=== PATIENT | female | born 2005 | race African-American/Black ===

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

== ENCOUNTER 2025-01-20 12:41 | Emergency (ER) | payer OTHER ==
--- OUTSIDE RECORDS SUMMARY | 2025-01-20 12:49 | XMS REPORT | Continuity of Care Document ---
Author Name Unknown Address [address] [facility] [address] [place] [address] [facility] [address] [facility] [address] [place] [address] Care Team Providers Care Media Relations Director Name Role Phone LAURIE GARCIA Primary Care Physician CAROL Schwab Attending Clinician CAROL Toure Attending Clinician JOSÉ Alegria Attending Clinician Unavailable JOSÉ MILLER Attending Clinician Unavailable Carol Dill MD Attending Clinician + [phone] CHANDA CAMP Attending Clinician Unavailab CHANDA Durant Attending Clinician UnavailLaurie Khan MD Attending Clinician + [phone] Po, [facility] Main Attending Clinician UnavailLAURIE Saleem Attending Clinician Unavailjani peace Doctor Unassigned, [place] Attending Clinician U Ahsan Cosme PA-C Attending Clinician [phone] DAIJA GILMAN Attending Clinician Unavailable Daija Gilman MD Attending Clinician [phone] ORLIN SENDSHANNON K.HKaron Attending Clinician Unavailjani Ordaz MD, Robby K.H. Attending Clinician + [phone] Mary Engel Attending Clinician [phone] MARY ESPARZA Attending Clinician Unavailable Nurse, Jordan Quintanilla Attending Clinician Unavaila AHSAN Camarillo Attending Clinician Unavailable Kita Walker MD Attending Clinician [phone] KITA WALKER Attending Clinician Unavailable LE QUEZADA Attending Clinician Unavailable TATE GILMAN Attending Clinician Unavailable SUZAN GOODWIN Attending Clinician Unavailab KELSY Dee Attending Clinician Unavailable SARIKA MIRANDA Attending Clinician Unavaila CHANDA Gutierrez Admitting Clinician Unavailab le Payers Payer Name Policy Type Policy Number Effective Date Expirati on Date Source [facility] [id number] 2020 00:00:00 [facility] [id number] 2020 00:00:00 [facility] [id number] 00:00:00 Problems Condition Name Condition Details Condition Category Status Onset Date Resolution Date Last Treatment Date Treating Clinician Comments Source Chlamydial infection Chlamydial Infection Problem Active 8-13 00:00: 00 [facility] Disorder of menstruati on Disorder of Menstruati on Problem Active - 00:00: 00 [facility] Foul smelling urine Foul Smelling Urine Problem Active 6 00:00: 00 [facility] Seizure-li ke activity Seizure-li ke activity Disease Active 12-05 00:00: 00 Last Assessmen t & Plan: Formattin g of this note might be different from the original. 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 No focal changes with her neurologi carole exam today. Plan:Retu rn to see Dr. Walker - saw her in the past for migraines - should likely have an EEG as well. Referral placed already.S eizure precautio ns provided. No driving or swimming alone pending the evaluatio n.Avoid prolonged exposure to high heat environme nts.Keep well hydrated - 3 -4 water bottles per day.Blood work ordered - CBC, CMP, TSH and Vitamin D level.Not jasmyne if further seizure like activity occurs - gave ER precautio ns. [facility] Orthostati c dizziness Orthostati c dizziness Disease Active 12-05 00:00: 00 Last Assessmen t & Plan: Formattin g of this note might be different from the original. Recommend ed a return to cardiolog y - she is establish ed. A referral is active for her to establish with an adult cardiolog ist - it support analyst to assist with securing the appointme nt.Plan:S tressed importanc e of hydration .Keep some salt in the diet daily. [facility] History of anemia History of anemia Disease Active 7 00:00: 00 Last Assessmen t & Plan: Formattin g of this note might be different from the original. Plan:Revi ewed iron rich foods and ordered follow up blood work. [facility] Migraines Migraines Disease Active 01-08 00:00: 00 Last Assessmen t & Plan: Formattin g of this note might be different from the original. Nicole is having ongoing issues with migraine headaches and has been non compliant (due to nausea) with the recommend ed medicatio ns.Plan:F irst line treatment for headaches are rest, seek out a quiet/ivon k place and avoid media.Ibu profen or acetamino phen may be given for temporary relief. Dosing and potential side effects discussed .Headache s can have many contribut ing factors.N utrition is important : Eating regular meals, healthy snacks.Dr bellamy plenty of fluids - water is best.Avoi d caffeine intake.Sl eep is important : Target 8 - 10 hours of sleep nightly.P ad activitie s to relieve stress.Re commended return to neurology for advice - referral already placed. [facility] Chest pain, atypical Chest pain, atypical Disease Active 5- 00:00: 00 Overview: Formattin g of this note might be different from the original. Saw Cardiolog y on 10/25/2020 and full eval was done which revealed no cardiac cause for her chest pain, no signs of pericardi tis, and they suspected costochon dritis.Up dated follow up with cardiolog y done 01/24/2022 : PLAN as follows.A typical chest pain:EKG dated 01/08/2022 reviewed shows sinus tachycard ia, narrow QRS complex, no significa nt ST changes.C T chest dated 10/21/2020 reviewed shows no evidence of PE. No coronary calcifica tion noted. No pericardi al effusion noted at that time.EKG dated 10/25/2020 reviewed shows sinus rhythm, narrow QRS complex, no significa nt changes.E chocardio gram dated 10/25/2020 reviewed shows preserved LV systolic function, normal atrial size, no significa nt valve abnormali ties noted.Rec ommended exercise TMT for further assessmen t for underlyin g arrhythmi as/functi onal capacity/ ischemic changes.P rocedure explained . Instructi ons given.Rec ommended adequate free water hydration .In spite of negative TMT, if she continues to have underlyin g atypical chest pain, but will proceed with cardiac CTA for further assessmen t.Last Assessmen t & Plan: Formattin g of this note might be different from the original. Teenager with new onset chest pain for period of 2 weeks, occurring daily. History of COVID-19 infection 1 month ago. Pain increases with ambulatio n. She is normotens elizabeth. Different ial includes potential cardiac problem, gastroeso phageal reflux, costochon dritis, pulmonary /chest wall pain. Clinical exam is inconsist ent with gastroeso phageal reflux or costochon dritis. Her respirato ry symptoms with COVID-19 were mild and not persistin g at this time. Lung exam is normal. No cardiopul monary insuffici ency on exam.Plan :Recommen ded cardiolog y evaluatio n, referral placed.Pr ovided a note for excuse from work pending the evaluatio n.Distant history of anemia, low hemoglobi n -noncompl iance with iron supplemen tation, CBC ordered.N otify if the pain worsens or becomes associate d with other symptoms. [facility] Scoliosis of thoracic spine Scoliosis of thoracic spine Disease Resolve d 02-05 00:00: 00 2022-12-05 00:00:00 2022-12-05 12:38:14 [facility] Iron deficiency anemia secondary to inadequate dietary iron intake Iron deficiency anemia secondary to inadequate dietary iron intake Disease Resolve d 01-21 00:00: 00 2022-12-05 00:00:00 2022-12-05 12:38:08 Overview: Formattin g of this note might be different from the original. On iron starting 01/21/2019 [facility] Chronic migraine without aura without status migrainosu s, not intractabl e Chronic migraine without aura without status migrainosu s, not intractabl e Disease Resolve d 2020-0 5-20 00:00: 00 2021-11-22 00:00:00 2021-11-22 16:20:00 [facility] Boil Boil Disease Resolve d 816 00:00: 00 2020-05-05 00:00:00 2020-05-05 16:04:23 [facility] Encounter for routine child health examinatio n without abnormal findings Encounter for routine child health examinatio n without abnormal findings Disease Resolve d 16 00:00: 00 2019-01-16 00:00:00 2019-01-16 12:23:14 [facility] Allergies, Adverse Reactions, Alerts Allergy Name Allergy Type Status Severity Reaction(s) Onset Date Inactive Date Treating Clinician Comments Source NO KNOWN ALLERGIE S Drug Class Active [facility] Social History Social Habit Start Date Stop Date Quantity Comments Source Gender identity [facility] Sexual orientation U [facility] History of Social function 2024-01-14 00:00:00 2024-01-14 00:00:00 [facility] Alcoholic beverage intake 2024-01-14 00:00:00 2024-01-14 00:00:00 Current drinker of alcohol (finding) [facility] Alcohol intake 2023-07-04 00:00:00 2023-07-04 00:00:00 Current drinker of alcohol (finding) [facility] Tobacco use and exposure 2022-12-10 00:00:00 2022-12-10 00:00:00 Smokeless tobacco non-user [facility] Alcohol Comment 2022-12-10 00:00:00 2022-12-10 00:00:00 ocassional [facility] Exposure to SARS-CoV-2 (event) 2022-10-08 00:00:00 2022-10-18 10:10:00 Not sure [facility] Sex assigned at 2003 00:00:00 2005 00:00:00 [facility] Smoking Status Start Date Stop Date Source Never Smoker [facility] Medications Ordered Medication Name Filled Medication Name Start Date Stop Date Current Medication? Ordering Clinician Indication Dosage Frequency Signature (SIG) Comments Components Source darrick destinyrobson ioL-iron (LOESTRIN FE 06/22) 1 mg-20 mcg (21)/75 mg (7) tablet 8-13 00:00: 00 Yes [id number] 1{tbl} Take 1 tablet by mouth in the morning. [facility] HYDROcodone -acetaminop hen (NORCO 5) 5-325 mg tablet 1 tablet - 14:45: 00 07-04 14:42 :00 No 1{tbl} 1 tablet, Oral, ONCE, 1 dose, On Sat07/04/23 at 0845, DOROTHY [facility] LOESTRIN FE (BLISOVI FE 06/22, ,) 1 mg-20 mcg (21)/75 mg (7) tablet - 00:00: 00 12-10 04:59 :00 No [id number] 1{tbl} Take 1 tablet by mouth in the morning. [facility] BLISOVI FE 06/22, 28, 1 mg-20 mcg (21)/75 mg (7) tablet -09 00:00: 00 12-10 00:00 :00 No [id number] TAKE 1 TABLET BY MOUTH EVERY DAY [facility] doxycycline hyclate 100 mg capsule 5-18 00:00: 00 12-05 00:00 :00 No [id number] 100mg Take 1 capsule by mouth in the morning and 1 capsule in the evening. [facility] topiramate 25 mg tablet 4-03 00:00: 00 Yes [id number] 9105 25mg Take 1 tablet by mouth in the morning. [facility] LOESTRIN FE 1 mg-20 mcg (21)/75 mg (7) tablet 5-18 00:00: 00 11-09 00:00 :00 No [id number] 1{tbl} Take 1 tablet by mouth daily. [facility] TOPIRAMATE 25 mg tablet 2020-06-12 00:00: 00 09-03 00:00 :00 No [id number] 9105 TAKE 1 TABLET BY MOUTH EVERY DAY [facility] rizatriptan 10 mg tablet 15 00:00: 00 Yes [id number] 9105 10mg Take 1 tablet by mouth as needed for Migraine. May take a 2nd dose after 2 hours if needed. Max 2 doses/day, 4 doses/week . [facility] Blisovi Fe 06/22 (28) 1 mg-20 mcg (21)/75 mg (7) tablet TAKE 1 TABLET BY MOUTH EVERY DAY IN THE MORNING Blisovi Fe 06/22 (28) 1 mg-20 mcg (21)/75 mg (7) tablet TAKE 1 TABLET BY MOUTH EVERY DAY IN THE MORNING No Blisovi Fe 06/22 (28) 1 mg-20 mcg (21)/75 mg (7) tablet TAKE 1 TABLET BY MOUTH EVERY DAY IN THE MORNING [facility] Immunizations Ordered Immunization Name Filled Immunization Name Date Status Comments Source HPV9 2021-11-22 00:00:00 Completed [facility] HPV9 2021-11-22 00:00:00 Completed [facility] HPV9 2021-11-22 00:00:00 Completed [facility] HPV9 2021-11-22 00:00:00 Completed [facility] HPV9 2021-11-22 00:00:00 Completed [facility] HPV9 2021-11-22 00:00:00 Completed [facility] HPV9 2021-11-22 00:00:00 Completed [facility] HPV9 2021-11-22 00:00:00 Completed [facility] HPV9 2021-11-22 00:00:00 Completed [facility] HPV9 2021-11-22 00:00:00 Completed [facility] HPV9 2021-11-22 00:00:00 Completed [facility] HPV9 2021-11-22 00:00:00 Completed [facility] Meningococcal B, OMV 2021-11-16 00:00:00 Completed [facility] Meningococcal B, OMV 2021-11-16 00:00:00 Completed [facility] Meningococcal B, OMV 2021-11-16 00:00:00 Completed [facility] Meningococcal B, OMV 2021-11-16 00:00:00 Completed [facility] Meningococcal B, OMV 2021-11-16 00:00:00 Completed [facility] Meningococcal B, OMV 2021-11-16 00:00:00 Completed [facility] Meningococcal B, OMV 2021-11-16 00:00:00 Completed [facility] Meningococcal B, OMV 2021-11-16 00:00:00 Completed [facility] Meningococcal B, OMV 2021-11-16 00:00:00 Completed [facility] Meningococcal B, OMV 2021-11-16 00:00:00 Completed [facility] Meningococcal B, OMV 2021-11-16 00:00:00 Completed [facility] Meningococcal B, OMV 2021-11-16 00:00:00 Completed [facility] HPV9 2020-07-07 00:00:00 Completed [facility] HPV9 2020-07-07 00:00:00 Completed [facility] HPV9 2020-07-07 00:00:00 Completed [facility] HPV9 2020-07-07 00:00:00 Completed [facility] HPV9 2020-07-07 00:00:00 Completed [facility] HPV9 2020-07-07 00:00:00 Completed [facility] HPV9 2020-07-07 00:00:00 Completed [facility] HPV9 2020-07-07 00:00:00 Completed [facility] HPV9 2020-07-07 00:00:00 Completed [facility] HPV9 2020-07-07 00:00:00 Completed [facility] HPV9 2020-07-07 00:00:00 Completed [facility] HPV9 2020-07-07 00:00:00 Completed [facility] Meningococcal Polysaccharide (groups A, C, Y and W-135) conjugate vaccine (MCV4P) 2020-05-06 00:00:00 Completed [facility] Meningococcal B, Recombinant 2020-05-06 00:00:00 Completed [facility] HPV9 2020-05-06 00:00:00 Completed [facility] Meningococcal Polysaccharide (groups A, C, Y and W-135) conjugate vaccine (MCV4P) 2020-05-06 00:00:00 Completed [facility] Meningococcal B, Recombinant 2020-05-06 00:00:00 Completed [facility] HPV9 2020-05-06 00:00:00 Completed [facility] Meningococcal Polysaccharide (groups A, C, Y and W-135) conjugate vaccine (MCV4P) 2020-05-06 00:00:00 Completed [facility] Meningococcal B, Recombinant 2020-05-06 00:00:00 Completed [facility] HPV9 2020-05-06 00:00:00 Completed [facility] Meningococcal Polysaccharide (groups A, C, Y and W-135) conjugate vaccine (MCV4P) 2020-05-06 00:00:00 Completed [facility] Meningococcal B, Recombinant 2020-05-06 00:00:00 Completed [facility] HPV9 2020-05-06 00:00:00 Completed [facility] Meningococcal Polysaccharide (groups A, C, Y and W-135) conjugate vaccine (MCV4P) 2020-05-06 00:00:00 Completed [facility] Meningococcal B, Recombinant 2020-05-06 00:00:00 Completed [facility] HPV9 2020-05-06 00:00:00 Completed [facility] Meningococcal Polysaccharide (groups A, C, Y and W-135) conjugate vaccine (MCV4P) 2020-05-06 00:00:00 Completed [facility] Meningococcal B, Recombinant 2020-05-06 00:00:00 Completed [facility] HPV9 2020-05-06 00:00:00 Completed [facility] Meningococcal Polysaccharide (groups A, C, Y and W-135) conjugate vaccine (MCV4P) 2020-05-06 00:00:00 Completed [facility] Meningococcal B, Recombinant 2020-05-06 00:00:00 Completed [facility] HPV9 2020-05-06 00:00:00 Completed [facility] Meningococcal Polysaccharide (groups A, C, Y and W-135) conjugate vaccine (MCV4P) 2020-05-06 00:00:00 Completed [facility] Meningococcal B, Recombinant 2020-05-06 00:00:00 Completed [facility] HPV9 2020-05-06 00:00:00 Completed [facility] Meningococcal Polysaccharide (groups A, C, Y and W-135) conjugate vaccine (MCV4P) 2020-05-06 00:00:00 Completed [facility] Meningococcal B, Recombinant 2020-05-06 00:00:00 Completed [facility] HPV9 2020-05-06 00:00:00 Completed [facility] Meningococcal Polysaccharide (groups A, C, Y and W-135) conjugate vaccine (MCV4P) 2020-05-06 00:00:00 Completed [facility] Meningococcal B, Recombinant 2020-05-06 00:00:00 Completed [facility] HPV9 2020-05-06 00:00:00 Completed [facility] Meningococcal Polysaccharide (groups A, C, Y and W-135) conjugate vaccine (MCV4P) 2020-05-06 00:00:00 Completed [facility] Meningococcal B, Recombinant 2020-05-06 00:00:00 Completed [facility] HPV9 2020-05-06 00:00:00 Completed [facility] Meningococcal Polysaccharide (groups A, C, Y and W-135) conjugate vaccine (MCV4P) 2020-05-06 00:00:00 Completed [facility] Meningococcal B, Recombinant 2020-05-06 00:00:00 Completed [facility] HPV9 2020-05-06 00:00:00 Completed [facility] Meningococcal Polysaccharide (groups A, C, Y and W-135) conjugate vaccine (MCV4P) 2016-01-11 00:00:00 Completed [facility] TDAP 2016-01-11 00:00:00 Completed [facility] Meningococcal Polysaccharide (groups A, C, Y and W-135) conjugate vaccine (MCV4P) 2016-01-11 00:00:00 Completed [facility] TDAP 2016-01-11 00:00:00 Completed [facility] Meningococcal Polysaccharide (groups A, C, Y and W-135) conjugate vaccine (MCV4P) 2016-01-11 00:00:00 Completed [facility] TDAP 2016-01-11 00:00:00 Completed [facility] Meningococcal Polysaccharide (groups A, C, Y and W-135) conjugate vaccine (MCV4P) 2016-01-11 00:00:00 Completed [facility] TDAP 2016-01-11 00:00:00 Completed [facility] Meningococcal Polysaccharide (groups A, C, Y and W-135) conjugate vaccine (MCV4P) 2016-01-11 00:00:00 Completed [facility] TDAP 2016-01-11 00:00:00 Completed [facility] Meningococcal Polysaccharide (groups A, C, Y and W-135) conjugate vaccine (MCV4P) 2016-01-11 [facility] [facility] Meningococcal Polysaccharide (groups A, C, Y and W-135) conjugate vaccine (MCV4P) 2016-01-11 00:00:00 Completed [facility] TDAP 2016-01-11 00:00:00 Completed [facility] Meningococcal Polysaccharide (groups A, C, Y and W-135) conjugate vaccine (MCV4P) 2016-01-11 00:00:00 Completed [facility] TDAP 2016-01-11 00:00:00 Completed [facility] Meningococcal Polysaccharide (groups A, C, Y and W-135) conjugate vaccine (MCV4P) 2016-01-11 00:00:00 Completed [facility] TDAP 2016-01-11 00:00:00 Completed [facility] Meningococcal Polysaccharide (groups A, C, Y and W-135) conjugate vaccine (MCV4P) 2016-01-11 00:00:00 Completed [facility] TDAP 2016-01-11 00:00:00 Completed [facility] Meningococcal Polysaccharide (groups A, C, Y and W-135) conjugate vaccine (MCV4P) 2016-01-11 00:00:00 Completed [facility] TDAP 2016-01-11 00:00:00 Completed [facility] Meningococcal Polysaccharide (groups A, C, Y and W-135) conjugate vaccine (MCV4P) 2016-01-11 00:00:00 Completed [facility] TDAP 2016-01-11 00:00:00 Completed [facility] DTAP 2007-10-23 00:00:00 Completed [facility] HEPATITIS A 2007-10-23 00:00:00 Completed [facility] Polio (IPV/OPV) 2007-10-23 00:00:00 Completed [facility] Varicella (varivax)(chicken pox) 2007-10-23 00:00:00 Completed [facility] MMR 2007-10-23 00:00:00 Completed [facility] DTAP 2007-10-23 00:00:00 Completed [facility] HEPATITIS A 2007-10-23 00:00:00 Completed [facility] Polio (IPV/OPV) 2007-10-23 00:00:00 Completed [facility] Varicella (varivax)(chicken pox) 2007-10-23 00:00:00 Completed [facility] MMR 2007-10-23 00:00:00 Completed [facility] DTAP 2007-10-23 00:00:00 Completed [facility] HEPATITIS A 2007-10-23 00:00:00 Completed [facility] Polio (IPV/OPV) 2007-10-23 00:00:00 Completed [facility] Varicella (varivax)(chicken pox) 2007-10-23 00:00:00 Completed [facility] MMR 2007-10-23 00:00:00 Completed [facility] DTAP 2007-10-23 00:00:00 Completed [facility] HEPATITIS A 2007-10-23 00:00:00 Completed [facility] Polio (IPV/OPV) 2007-10-23 00:00:00 Completed [facility] Varicella (varivax)(chicken pox) 2007-10-23 00:00:00 Completed [facility] MMR 2007-10-23 00:00:00 Completed [facility] DTAP 2007-10-23 00:00:00 Completed [facility] HEPATITIS A 2007-10-23 00:00:00 Completed [facility] Polio (IPV/OPV) 2007-10-23 00:00:00 Completed [facility] Varicella (varivax)(chicken pox) 2007-10-23 00:00:00 Completed [facility] MMR 2007-10-23 00:00:00 Completed [facility] DTAP 2007-10-23 00:00:00 Completed [facility] HEPATITIS A 2007-10-23 00:00:00 Completed [facility] Polio (IPV/OPV) 2007-10-23 00:00:00 Completed [facility] Varicella (varivax)(chicken pox) 2007-10-23 00:00:00 Completed [facility] MMR 2007-10-23 00:00:00 Completed [facility] DTAP 2007-10-23 00:00:00 Completed [facility] HEPATITIS A 2007-10-23 00:00:00 Completed [facility] Polio (IPV/OPV) 2007-10-23 00:00:00 Completed [facility] Varicella (varivax)(chicken pox) 2007-10-23 00:00:00 Completed [facility] MMR 2007-10-23 00:00:00 Completed [facility] DTAP 2007-10-23 00:00:00 Completed [facility] HEPATITIS A 2007-10-23 00:00:00 Completed [facility] Polio (IPV/OPV) 2007-10-23 00:00:00 Completed [facility] Varicella (varivax)(chicken pox) 2007-10-23 00:00:00 Completed [facility] MMR 2007-10-23 00:00:00 Completed [facility] DTAP 2007-10-23 00:00:00 Completed [facility] HEPATITIS A 2007-10-23 00:00:00 Completed [facility] Polio (IPV/OPV) 2007-10-23 00:00:00 Completed [facility] Varicella (varivax)(chicken pox) 2007-10-23 00:00:00 Completed [facility] MMR 2007-10-23 00:00:00 Completed [facility] DTAP 2007-10-23 00:00:00 Completed [facility] HEPATITIS A 2007-10-23 00:00:00 Completed [facility] Polio (IPV/OPV) 2007-10-23 00:00:00 Completed [facility] Varicella (varivax)(chicken pox) 2007-10-23 00:00:00 Completed [facility] MMR 2007-10-23 00:00:00 Completed [facility] DTAP 2007-10-23 00:00:00 Completed [facility] HEPATITIS A 2007-10-23 00:00:00 Completed [facility] Polio (IPV/OPV) 2007-10-23 00:00:00 Completed [facility] Varicella (varivax)(chicken pox) 2007-10-23 00:00:00 Completed [facility] MMR 2007-10-23 00:00:00 Completed [facility] DTAP 2007-10-23 00:00:00 Completed [facility] HEPATITIS A 2007-10-23 00:00:00 Completed [facility] Polio (IPV/OPV) 2007-10-23 00:00:00 Completed [facility] Varicella (varivax)(chicken pox) 2007-10-23 00:00:00 Completed [facility] MMR 2007-10-23 00:00:00 Completed [facility] HEPATITIS A 2005-07-20 00:00:00 Completed [facility] HEPATITIS A 2005-07-20 00:00:00 Completed [facility] HEPATITIS A 2005-07-20 00:00:00 Completed [facility] HEPATITIS A 2005-07-20 00:00:00 Completed [facility] HEPATITIS A 2005-07-20 00:00:00 Completed [facility] HEPATITIS A 2005-07-20 00:00:00 Completed [facility] HEPATITIS A 2005-07-20 00:00:00 Completed [facility] HEPATITIS A 2005-07-20 00:00:00 Completed [facility] HEPATITIS A 2005-07-20 00:00:00 Completed [facility] HEPATITIS A 2005-07-20 00:00:00 Completed [facility] HEPATITIS A 2005-07-20 00:00:00 Completed [facility] HEPATITIS A 2005-07-20 00:00:00 Completed [facility] Pneumococcal 13 Conjugate, PCV13 (Prevnar 13) 2005-04-16 00:00:00 Completed [facility] Pneumococcal 13 Conjugate, PCV13 (Prevnar 13) 2005-04-16 00:00:00 Completed [facility] Pneumococcal 13 Conjugate, PCV13 (Prevnar 13) 2005-04-16 00:00:00 Completed [facility] Pneumococcal 13 Conjugate, PCV13 (Prevnar 13) 2005-04-16 00:00:00 Completed [facility] Pneumococcal 13 Conjugate, PCV13 (Prevnar 13) 2005-04-16 00:00:00 Completed [facility] Pneumococcal 13 Conjugate, PCV13 (Prevnar 13) 2005-04-16 00:00:00 Completed [facility] Pneumococcal 13 Conjugate, PCV13 (Prevnar 13) 2005-04-16 00:00:00 Completed [facility] Pneumococcal 13 Conjugate, PCV13 (Prevnar 13) 2005-04-16 00:00:00 Completed [facility] Pneumococcal 13 Conjugate, PCV13 (Prevnar 13) 2005-04-16 00:00:00 Completed [facility] Pneumococcal 13 Conjugate, PCV13 (Prevnar 13) 2005-04-16 00:00:00 Completed [facility] Pneumococcal 13 Conjugate, PCV13 (Prevnar 13) 2005-04-16 00:00:00 Completed [facility] Pneumococcal 13 Conjugate, PCV13 (Prevnar 13) 2005-04-16 00:00:00 Completed [facility] Pneumococcal 13 Conjugate, PCV13 (Prevnar 13) 2005-03-13 00:00:00 Completed [facility] Pneumococcal 13 Conjugate, PCV13 (Prevnar 13) 2005-03-13 00:00:00 Completed [facility] Pneumococcal 13 Conjugate, PCV13 (Prevnar 13) 2005-03-13 00:00:00 Completed [facility] Pneumococcal 13 Conjugate, PCV13 (Prevnar 13) 2005-03-13 00:00:00 Completed [facility] Pneumococcal 13 Conjugate, PCV13 (Prevnar 13) 2005-03-13 00:00:00 Completed [facility] Pneumococcal 13 Conjugate, PCV13 (Prevnar 13) 2005-03-13 00:00:00 Completed [facility] Pneumococcal 13 Conjugate, PCV13 (Prevnar 13) 2005-03-13 00:00:00 Completed [facility] Pneumococcal 13 Conjugate, PCV13 (Prevnar 13) 2005-03-13 00:00:00 Completed [facility] Pneumococcal 13 Conjugate, PCV13 (Prevnar 13) 2005-03-13 00:00:00 Completed [facility] Pneumococcal 13 Conjugate, PCV13 (Prevnar 13) 2005-03-13 00:00:00 Completed [facility] Pneumococcal 13 Conjugate, PCV13 (Prevnar 13) 2005-03-13 00:00:00 Completed [facility] Pneumococcal 13 Conjugate, PCV13 (Prevnar 13) 2005-03-13 00:00:00 Completed [facility] Pneumococcal 13 Conjugate, PCV13 (Prevnar 13) 2005-02-14 00:00:00 Completed [facility] Pneumococcal 13 Conjugate, PCV13 (Prevnar 13) 2005-02-14 00:00:00 Completed [facility] Pneumococcal 13 Conjugate, PCV13 (Prevnar 13) 2005-02-14 00:00:00 Completed [facility] Pneumococcal 13 Conjugate, PCV13 (Prevnar 13) 2005-02-14 00:00:00 Completed [facility] Pneumococcal 13 Conjugate, PCV13 (Prevnar 13) 2005-02-14 00:00:00 Completed [facility] Pneumococcal 13 Conjugate, PCV13 (Prevnar 13) 2005-02-14 00:00:00 Completed [facility] Pneumococcal 13 Conjugate, PCV13 (Prevnar 13) 2005-02-14 00:00:00 Completed [facility] Pneumococcal 13 Conjugate, PCV13 (Prevnar 13) 2005-02-14 00:00:00 Completed [facility] Pneumococcal 13 Conjugate, PCV13 (Prevnar 13) 2005-02-14 00:00:00 Completed [facility] Pneumococcal 13 Conjugate, PCV13 (Prevnar 13) 2005-02-14 00:00:00 Completed [facility] Pneumococcal 13 Conjugate, PCV13 (Prevnar 13) 2005-02-14 00:00:00 Completed [facility] Pneumococcal 13 Conjugate, PCV13 (Prevnar 13) 2005-02-14 00:00:00 Completed [facility] DTAP 2004-09-05 00:00:00 Completed [facility] HIB 4 Dose Schedule 2004-09-05 00:00:00 Completed [facility] MMR 2004-09-05 00:00:00 Completed [facility] Varicella (varivax)(chicken pox) 2004-09-05 00:00:00 Completed [facility] DTAP 2004-09-05 00:00:00 Completed [facility] HIB 4 Dose Schedule 2004-09-05 00:00:00 Completed [facility] MMR 2004-09-05 00:00:00 Completed [facility] Varicella (varivax)(chicken pox) 2004-09-05 00:00:00 Completed [facility] DTAP 2004-09-05 00:00:00 Completed [facility] HIB 4 Dose Schedule 2004-09-05 00:00:00 Completed [facility] MMR 2004-09-05 00:00:00 Completed [facility] Varicella (varivax)(chicken pox) 2004-09-05 00:00:00 Completed [facility] DTAP 2004-09-05 00:00:00 Completed [facility] HIB 4 Dose Schedule 2004-09-05 00:00:00 Completed [facility] MMR 2004-09-05 00:00:00 Completed [facility] Varicella (varivax)(chicken pox) 2004-09-05 00:00:00 Completed [facility] DTAP 2004-09-05 00:00:00 Completed [facility] HIB 4 Dose Schedule 2004-09-05 00:00:00 Completed [facility] MMR 2004-09-05 00:00:00 Completed [facility] Varicella (varivax)(chicken pox) 2004-09-05 00:00:00 Completed [facility] DTAP 2004-09-05 00:00:00 Completed [facility] HIB 4 Dose Schedule 2004-09-05 00:00:00 Completed [facility] MMR 2004-09-05 00:00:00 Completed [facility] Varicella (varivax)(chicken pox) 2004-09-05 00:00:00 Completed [facility] DTAP 2004-09-05 00:00:00 Completed [facility] HIB 4 Dose Schedule 2004-09-05 00:00:00 Completed [facility] MMR 2004-09-05 00:00:00 Completed [facility] Varicella (varivax)(chicken pox) 2004-09-05 00:00:00 Completed [facility] DTAP 2004-09-05 00:00:00 Completed [facility] HIB 4 Dose Schedule 2004-09-05 00:00:00 Completed [facility] MMR 2004-09-05 00:00:00 Completed [facility] Varicella (varivax)(chicken pox) 2004-09-05 00:00:00 Completed [facility] DTAP 2004-09-05 00:00:00 Completed [facility] HIB 4 Dose Schedule 2004-09-05 00:00:00 Completed [facility] MMR 2004-09-05 00:00:00 Completed [facility] Varicella (varivax)(chicken pox) 2004-09-05 00:00:00 Completed [facility] DTAP 2004-09-05 00:00:00 Completed [facility] HIB 4 Dose Schedule 2004-09-05 00:00:00 Completed [facility] MMR 2004-09-05 00:00:00 Completed [facility] Varicella (varivax)(chicken pox) 2004-09-05 00:00:00 Completed [facility] DTAP 2004-09-05 00:00:00 Completed [facility] HIB 4 Dose Schedule 2004-09-05 00:00:00 Completed [facility] MMR 2004-09-05 00:00:00 Completed [facility] Varicella (varivax)(chicken pox) 2004-09-05 00:00:00 Completed [facility] DTAP 2004-09-05 00:00:00 Completed [facility] HIB 4 Dose Schedule 2004-09-05 00:00:00 Completed [facility] MMR 2004-09-05 00:00:00 Completed [facility] Varicella (varivax)(chicken pox) 2004-09-05 00:00:00 Completed [facility] DTAP 2004-01-12 00:00:00 Completed [facility] HIB 4 Dose Schedule 2004-01-12 00:00:00 Completed [facility] Hep B, Adol or Pedi Dosage 2004-01-12 00:00:00 Completed [facility] Polio (IPV/OPV) 2004-01-12 00:00:00 Completed [facility] DTAP 2004-01-12 00:00:00 Completed [facility] HIB 4 Dose Schedule 2004-01-12 00:00:00 Completed [facility] Hep B, Adol or Pedi Dosage 2004-01-12 00:00:00 Completed [facility] Polio (IPV/OPV) 2004-01-12 00:00:00 Completed [facility] DTAP 2004-01-12 00:00:00 Completed [facility] HIB 4 Dose Schedule 2004-01-12 00:00:00 Completed [facility] Hep B, Adol or Pedi Dosage 2004-01-12 00:00:00 Completed [facility] Polio (IPV/OPV) 2004-01-12 00:00:00 Completed [facility] DTAP 2004-01-12 00:00:00 Completed [facility] HIB 4 Dose Schedule 2004-01-12 00:00:00 Completed [facility] Hep B, Adol or Pedi Dosage 2004-01-12 00:00:00 Completed [facility] Polio (IPV/OPV) 2004-01-12 00:00:00 Completed [facility] DTAP 2004-01-12 00:00:00 Completed [facility] HIB 4 Dose Schedule 2004-01-12 00:00:00 Completed [facility] Hep B, Adol or Pedi Dosage 2004-01-12 00:00:00 Completed [facility] Polio (IPV/OPV) 2004-01-12 00:00:00 Completed [facility] DTAP 2004-01-12 00:00:00 Completed [facility] HIB 4 Dose Schedule 2004-01-12 00:00:00 Completed [facility] Hep B, Adol or Pedi Dosage 2004-01-12 00:00:00 Completed [facility] Polio (IPV/OPV) 2004-01-12 00:00:00 Completed [facility] DTAP 2004-01-12 00:00:00 Completed [facility] HIB 4 Dose Schedule 2004-01-12 00:00:00 Completed [facility] Hep B, Adol or Pedi Dosage 2004-01-12 00:00:00 Completed [facility] Polio (IPV/OPV) 2004-01-12 00:00:00 Completed [facility] DTAP 2004-01-12 00:00:00 Completed [facility] HIB 4 Dose Schedule 2004-01-12 00:00:00 Completed [facility] Hep B, Adol or Pedi Dosage 2004-01-12 00:00:00 Completed [facility] Polio (IPV/OPV) 2004-01-12 00:00:00 Completed [facility] DTAP 2004-01-12 00:00:00 Completed [facility] HIB 4 Dose Schedule 2004-01-12 00:00:00 Completed [facility] Hep B, Adol or Pedi Dosage 2004-01-12 00:00:00 Completed [facility] Polio (IPV/OPV) 2004-01-12 00:00:00 Completed [facility] DTAP 2004-01-12 00:00:00 Completed [facility] HIB 4 Dose Schedule 2004-01-12 00:00:00 Completed [facility] Hep B, Adol or Pedi Dosage 2004-01-12 00:00:00 Completed [facility] Polio (IPV/OPV) 2004-01-12 00:00:00 Completed [facility] DTAP 2004-01-12 00:00:00 Completed [facility] HIB 4 Dose Schedule 2004-01-12 00:00:00 Completed [facility] Hep B, Adol or Pedi Dosage 2004-01-12 00:00:00 Completed [facility] Polio (IPV/OPV) 2004-01-12 00:00:00 Completed [facility] DTAP 2004-01-12 00:00:00 Completed [facility] HIB 4 Dose Schedule 2004-01-12 00:00:00 Completed [facility] Hep B, Adol or Pedi Dosage 2004-01-12 00:00:00 Completed [facility] Polio (IPV/OPV) 2004-01-12 00:00:00 Completed [facility] DTAP 2003 00:00:00 Completed [facility] HIB 4 Dose Schedule 2003 00:00:00 Completed [facility] Hep B, Adol or Pedi Dosage 2003 00:00:00 Completed [facility] Pneumococcal 13 Conjugate, PCV13 (Prevnar 13) 2003 00:00:00 Completed [facility] Polio (IPV/OPV) 2003 00:00:00 Completed [facility] DTAP 2003 00:00:00 Completed [facility] HIB 4 Dose Schedule 2003 00:00:00 Completed [facility] Hep B, Adol or Pedi Dosage 2003 00:00:00 Completed [facility] Pneumococcal 13 Conjugate, PCV13 (Prevnar 13) 2003 00:00:00 Completed [facility] Polio (IPV/OPV) 2003 00:00:00 Completed [facility] DTAP 2003 00:00:00 Completed [facility] HIB 4 Dose Schedule 2003 00:00:00 Completed [facility] Hep B, Adol or Pedi Dosage 2003 00:00:00 Completed [facility] Pneumococcal 13 Conjugate, PCV13 (Prevnar 13) 2003 00:00:00 Completed [facility] Polio (IPV/OPV) 2003 00:00:00 Completed [facility] DTAP 2003 00:00:00 Completed [facility] HIB 4 Dose Schedule 2003 00:00:00 Completed [facility] Hep B, Adol or Pedi Dosage 2003 00:00:00 Completed [facility] Pneumococcal 13 Conjugate, PCV13 (Prevnar 13) 2003 00:00:00 Completed [facility] Polio (IPV/OPV) 2003 00:00:00 Completed [facility] DTAP 2003 00:00:00 Completed [facility] HIB 4 Dose Schedule 2003 00:00:00 Completed [facility] Hep B, Adol or Pedi Dosage 2003 00:00:00 Completed [facility] Pneumococcal 13 Conjugate, PCV13 (Prevnar 13) 2003 00:00:00 Completed [facility] Polio (IPV/OPV) 2003 00:00:00 Completed [facility] DTAP 2003 00:00:00 Completed [facility] HIB 4 Dose Schedule 2003 00:00:00 Completed [facility] Hep B, Adol or Pedi Dosage 2003 00:00:00 Completed [facility] Pneumococcal 13 Conjugate, PCV13 (Prevnar 13) 2003 00:00:00 Completed [facility] Polio (IPV/OPV) 2003 00:00:00 Completed [facility] DTAP 2003 00:00:00 Completed [facility] HIB 4 Dose Schedule 2003 00:00:00 Completed [facility] Hep B, Adol or Pedi Dosage 2003 00:00:00 Completed [facility] Pneumococcal 13 Conjugate, PCV13 (Prevnar 13) 2003 00:00:00 Completed [facility] Polio (IPV/OPV) 2003 00:00:00 Completed [facility] DTAP 2003 00:00:00 Completed [facility] HIB 4 Dose Schedule 2003 00:00:00 Completed [facility] Hep B, Adol or Pedi Dosage 2003 00:00:00 Completed [facility] Pneumococcal 13 Conjugate, PCV13 (Prevnar 13) 2003 00:00:00 Completed [facility] Polio (IPV/OPV) 2003 00:00:00 Completed [facility] DTAP 2003 00:00:00 Completed [facility] HIB 4 Dose Schedule 2003 00:00:00 Completed [facility] Hep B, Adol or Pedi Dosage 2003 00:00:00 Completed [facility] Pneumococcal 13 Conjugate, PCV13 (Prevnar 13) 2003 00:00:00 Completed [facility] Polio (IPV/OPV) 2003 00:00:00 Completed [facility] DTAP 2003 00:00:00 Completed [facility] HIB 4 Dose Schedule 2003 00:00:00 Completed [facility] Hep B, Adol or Pedi Dosage 2003 00:00:00 Completed [facility] Pneumococcal 13 Conjugate, PCV13 (Prevnar 13) 2003 00:00:00 Completed [facility] Polio (IPV/OPV) 2003 00:00:00 Completed [facility] DTAP 2003 00:00:00 Completed [facility] HIB 4 Dose Schedule 2003 00:00:00 Completed [facility] Hep B, Adol or Pedi Dosage 2003 00:00:00 Completed [facility] Pneumococcal 13 Conjugate, PCV13 (Prevnar 13) 2003 00:00:00 Completed [facility] Polio (IPV/OPV) 2003 00:00:00 Completed [facility] DTAP 2003 00:00:00 Completed [facility] HIB 4 Dose Schedule 2003 00:00:00 Completed [facility] Hep B, Adol or Pedi Dosage 2003 00:00:00 Completed [facility] Pneumococcal 13 Conjugate, PCV13 (Prevnar 13) 2003 00:00:00 Completed [facility] Polio (IPV/OPV) 2003 00:00:00 Completed [facility] HIB 4 Dose Schedule 2003 00:00:00 Completed [facility] Pediarix (dtap/hep B/ipv) 2003 00:00:00 Completed [facility] Pneumococcal 13 Conjugate, PCV13 (Prevnar 13) 2003 00:00:00 Completed [facility] Polio (IPV/OPV) 2003 00:00:00 Completed [facility] HIB 4 Dose Schedule 2003 00:00:00 Completed [facility] Pediarix (dtap/hep B/ipv) 2003 00:00:00 Completed [facility] Pneumococcal 13 Conjugate, PCV13 (Prevnar 13) 2003 00:00:00 Completed [facility] Polio (IPV/OPV) 2003 00:00:00 [facility] [facility] HIB 4 Dose Schedule 2003 00:00:00 Completed [facility] Pediarix (dtap/hep B/ipv) 2003 00:00:00 Completed [facility] Pneumococcal 13 Conjugate, PCV13 (Prevnar 13) 2003 00:00:00 Completed [facility] Polio (IPV/OPV) 2003 00:00:00 Completed [facility] HIB 4 Dose Schedule 2003 00:00:00 Completed [facility] Pediarix (dtap/hep B/ipv) 2003 00:00:00 Completed [facility] Pneumococcal 13 Conjugate, PCV13 (Prevnar 13) 2003 00:00:00 Completed [facility] Polio (IPV/OPV) 2003 00:00:00 Completed [facility] HIB 4 Dose Schedule 2003 00:00:00 Completed [facility] Pediarix (dtap/hep B/ipv) 2003 00:00:00 Completed [facility] Pneumococcal 13 Conjugate, PCV13 (Prevnar 13) 2003 00:00:00 Completed [facility] Polio (IPV/OPV) 2003 00:00:00 Completed [facility] HIB 4 Dose Schedule 2003 00:00:00 Completed [facility] Pediarix (dtap/hep B/ipv) 2003 00:00:00 Completed [facility] Pneumococcal 13 Conjugate, PCV13 (Prevnar 13) 2003 00:00:00 Completed [facility] Polio (IPV/OPV) 2003 00:00:00 Completed [facility] HIB 4 Dose Schedule 2003 00:00:00 Completed [facility] Pediarix (dtap/hep B/ipv) 2003 00:00:00 Completed [facility] Pneumococcal 13 Conjugate, PCV13 (Prevnar 13) 2003 00:00:00 Completed [facility] Polio (IPV/OPV) 2003 00:00:00 Completed [facility] HIB 4 Dose Schedule 2003 00:00:00 Completed [facility] Pediarix (dtap/hep B/ipv) 2003 00:00:00 Completed [facility] Pneumococcal 13 Conjugate, PCV13 (Prevnar 13) 2003 00:00:00 Completed [facility] Polio (IPV/OPV) 2003 00:00:00 Completed [facility] HIB 4 Dose Schedule 2003 00:00:00 Completed [facility] Pediarix (dtap/hep B/ipv) 2003 00:00:00 Completed [facility] Pneumococcal 13 Conjugate, PCV13 (Prevnar 13) 2003 00:00:00 Completed [facility] Polio (IPV/OPV) 2003 00:00:00 Completed [facility] HIB 4 Dose Schedule 2003 00:00:00 Completed [facility] Pediarix (dtap/hep B/ipv) 2003 00:00:00 Completed [facility] Pneumococcal 13 Conjugate, PCV13 (Prevnar 13) 2003 00:00:00 Completed [facility] Polio (IPV/OPV) 2003 00:00:00 Completed [facility] HIB 4 Dose Schedule 2003 00:00:00 Completed [facility] Pediarix (dtap/hep B/ipv) 2003 00:00:00 Completed [facility] Pneumococcal 13 Conjugate, PCV13 (Prevnar 13) 2003 00:00:00 Completed [facility] Polio (IPV/OPV) 2003 00:00:00 Completed [facility] HIB 4 Dose Schedule 2003 00:00:00 Completed [facility] Pediarix (dtap/hep B/ipv) 2003 00:00:00 Completed [facility] Pneumococcal 13 Conjugate, PCV13 (Prevnar 13) 2003 00:00:00 Completed [facility] Polio (IPV/OPV) 2003 00:00:00 Completed [facility] Hep B, Adol or Pedi Dosage 2003 00:00:00 Completed [facility] Hep B, Adol or Pedi Dosage 2003 00:00:00 Completed [facility] Hep B, Adol or Pedi Dosage 2003 00:00:00 Completed [facility] Hep B, Adol or Pedi Dosage 2003 00:00:00 Completed [facility] Hep B, Adol or Pedi Dosage 2003 00:00:00 Completed [facility] Hep B, Adol or Pedi Dosage 2003 00:00:00 Completed [facility] Hep B, Adol or Pedi Dosage 2003 00:00:00 Completed [facility] Hep B, Adol or Pedi Dosage 2003 00:00:00 Completed [facility] Hep B, Adol or Pedi Dosage 2003 00:00:00 Completed [facility] Hep B, Adol or Pedi Dosage 2003 00:00:00 Completed [facility] Hep B, Adol or Pedi Dosage 2003 00:00:00 Completed [facility] Hep B, Adol or Pedi Dosage 2003 00:00:00 Completed [facility] DTAP Unknown Completed [facility] HIB 4 Dose Schedule Unknown Completed [facility] HEPATITIS A Unknown Completed [facility] Hep B, Adol or Pedi Dosage Unknown Completed [facility] Meningococcal Polysaccharide (groups A, C, Y and W-135) conjugate vaccine (MCV4P) Unknown Completed [facility] MMR Unknown Completed [facility] Pediarix (dtap/hep B/ipv) Unknown Completed [facility] Pneumococcal 13 Conjugate, PCV13 (Prevnar 13) Unknown Completed [facility] Polio (IPV/OPV) Unknown Completed [facility] TDAP Unknown Completed [facility] Varicella (varivax)(chicken pox) Unknown Completed [facility] Meningococcal B, Recombinant Unknown Completed [facility] HPV9 Unknown Completed [facility] DTAP Unknown Completed [facility] HIB 4 Dose Schedule Unknown Completed [facility] HEPATITIS A Unknown Completed [facility] Hep B, Adol or Pedi Dosage Unknown Completed [facility] Meningococcal Polysaccharide (groups A, C, Y and W-135) conjugate vaccine (MCV4P) Unknown Completed [facility] MMR Unknown Completed [facility] Pediarix (dtap/hep B/ipv) Unknown Completed [facility] Pneumococcal 13 Conjugate, PCV13 (Prevnar 13) Unknown Completed [facility] Polio (IPV/OPV) Unknown Completed [facility] TDAP Unknown Completed [facility] Varicella (varivax)(chicken pox) Unknown Completed [facility] Meningococcal B, Recombinant Unknown Completed [facility] HPV9 Unknown Completed [facility] DTAP Unknown Completed [facility] HIB 4 Dose Schedule Unknown Completed [facility] HEPATITIS A Unknown Completed [facility] Hep B, Adol or Pedi Dosage Unknown Completed [facility] Meningococcal Polysaccharide (groups A, C, Y and W-135) conjugate vaccine (MCV4P) Unknown Completed [facility] MMR Unknown Completed [facility] Pediarix (dtap/hep B/ipv) Unknown Completed [facility] Pneumococcal 13 Conjugate, PCV13 (Prevnar 13) Unknown Completed [facility] Polio (IPV/OPV) Unknown Completed [facility] TDAP Unknown Completed [facility] Varicella (varivax)(chicken pox) Unknown Completed [facility] Meningococcal B, Recombinant Unknown Completed [facility] HPV9 Unknown Completed [facility] Meningococcal B, OMV Unknown Completed [facility] DTAP Unknown Completed [facility] HIB 4 Dose Schedule Unknown Completed [facility] HEPATITIS A Unknown Completed [facility] Hep B, Adol or Pedi Dosage Unknown Completed [facility] Meningococcal Polysaccharide (groups A, C, Y and W-135) conjugate vaccine (MCV4P) Unknown Completed [facility] MMR Unknown Completed [facility] Pediarix (dtap/hep B/ipv) Unknown Completed [facility] Pneumococcal 13 Conjugate, PCV13 (Prevnar 13) Unknown Completed [facility] Polio (IPV/OPV) Unknown Completed [facility] TDAP Unknown Completed [facility] Varicella (varivax)(chicken pox) Unknown Completed [facility] Meningococcal B, Recombinant Unknown Completed [facility] HPV9 Unknown Completed [facility] Meningococcal B, OMV Unknown Completed [facility] DTAP Unknown Completed [facility] HIB 4 Dose Schedule Unknown Completed [facility] HEPATITIS A Unknown Completed [facility] Hep B, Adol or Pedi Dosage Unknown Completed [facility] Meningococcal Polysaccharide (groups A, C, Y and W-135) conjugate vaccine (MCV4P) Unknown Completed [facility] MMR Unknown Completed [facility] Pediarix (dtap/hep B/ipv) Unknown Completed [facility] Pneumococcal 13 Conjugate, PCV13 (Prevnar 13) Unknown Completed [facility] Polio (IPV/OPV) Unknown Completed [facility] TDAP Unknown Completed [facility] Varicella (varivax)(chicken pox) Unknown Completed [facility] Meningococcal B, Recombinant Unknown Completed [facility] HPV9 Unknown Completed [facility] Meningococcal B, OMV Unknown Completed [facility] Vital Signs Vital Name Observation Time Observation Value Comments S ource Height 2025-01-13 00:00:00 66 [in_i] [facility] BP Diastolic 2025-01-13 00:00:00 72 mm[Hg] [facility] BMI (Body Mass Index) 2025-01-13 00:00:00 28.6 kg/m2 [facility] BP Systolic 2025-01-13 00:00:00 118 mm[Hg] [facility] Body Weight 2025-01-13 00:00:00 177 [lb_av] [facility] BP Systolic 2024-12-09 00:00:00 124 mm[Hg] [facility] BMI (Body Mass Index) 2024-12-09 00:00:00 28.9 kg/m2 [facility] BP Diastolic 2024-12-09 00:00:00 88 mm[Hg] [facility] Body Weight 2024-12-09 00:00:00 179 [lb_av] [facility] Height 2024-12-09 00:00:00 66 [in_i] [facility] Height 2024-11-04 00:00:00 66 [in_i] [facility] Body Weight 2024-11-04 00:00:00 173 [lb_av] [facility] BP Systolic 2024-11-04 00:00:00 126 mm[Hg] [facility] BP Diastolic 2024-11-04 00:00:00 84 mm[Hg] [facility] BMI (Body Mass Index) 2024-11-04 00:00:00 27.9 kg/m2 [facility] Systolic blood pressure 2024-01-14 20:40:00 123 mm[Hg] [facility] Diastolic blood pressure 2024-01-14 20:40:00 82 mm[Hg] [facility] Heart rate 2024-01-14 20:40:00 94 /min [facility] Respiratory rate 2024-01-14 20:40:00 18 /min [facility] Body height 2024-01-14 20:40:00 168.9 cm [facility] Body weight 2024-01-14 20:40:00 76.204 kg [facility] BMI 2024-01-14 20:40:00 26.71 kg/m2 [facility] Systolic blood pressure 2023-07-04 14:29:00 144 mm[Hg] [facility] Diastolic blood pressure 2023-07-04 14:29:00 99 mm[Hg] [facility] Heart rate 2023-07-04 14:29:00 105 /min [facility] Body temperature 2023-07-04 14:29:00 37.11 Marsha [facility] Respiratory rate 2023-07-04 14:29:00 18 /min [facility] Body height 2023-07-04 14:29:00 170.2 cm [facility] Body weight 2023-07-04 14:29:00 72.576 kg [facility] BMI 2023-07-04 14:29:00 25.06 kg/m2 [facility] Oxygen saturation in Arterial blood by Pulse oximetry 2023-07-04 14:29:00 100 /min [facility] Systolic blood pressure 2022-12-10 20:04:00 118 mm[Hg] [facility] Diastolic blood pressure 2022-12-10 20:04:00 82 mm[Hg] [facility] Heart rate 2022-12-10 20:04:00 95 /min [facility] Body temperature 2022-12-10 20:04:00 37.06 Marsha [facility] Body height 2022-12-10 20:04:00 168.9 cm [facility] Body weight 2022-12-10 20:04:00 65.772 kg [facility] BMI 2022-12-10 20:04:00 23.05 kg/m2 [facility] Systolic blood pressure 2022-12-05 17:10:00 115 mm[Hg] sitting straight up [facility] Diastolic blood pressure 2022-12-05 17:10:00 78 mm[Hg] sitting straight up [facility] Heart rate 2022-12-05 16:34:00 93 /min [facility] Body temperature 2022-12-05 16:34:00 37.06 Marsha [facility] Respiratory rate 2022-12-05 16:34:00 19 /min [facility] Body weight 2022-12-05 16:34:00 66.996 kg [facility] Oxygen saturation in Arterial blood by Pulse oximetry 2022-12-05 16:34:00 99 /min [facility] Systolic blood pressure 2022-10-18 15:11:00 113 mm[Hg] [facility] Diastolic blood pressure 2022-10-18 15:11:00 79 mm[Hg] [facility] Heart rate 2022-10-18 15:11:00 91 /min [facility] Body temperature 2022-10-18 15:11:00 37.22 Marsha [facility] Respiratory rate 2022-10-18 15:11:00 16 /min [facility] Body height 2022-10-18 15:11:00 167.6 cm [facility] Body weight 2022-10-18 15:11:00 63.504 kg [facility] BMI 2022-10-18 15:11:00 22.60 kg/m2 [facility] Oxygen saturation in Arterial blood by Pulse oximetry 2022-10-18 15:11:00 100 /min [facility] Systolic blood pressure 2022-01-24 20:11:00 102 mm[Hg] [facility] Diastolic blood pressure 2022-01-24 20:11:00 57 mm[Hg] [facility] Heart rate 2022-01-24 20:11:00 83 /min [facility] Body height 2022-01-24 20:11:00 167.6 cm [facility] Body weight 2022-01-24 20:11:00 62.959 kg [facility] BMI 2022-01-24 20:11:00 22.40 kg/m2 [facility] Body mass index (BMI) [Percentile] Per age and sex 2022-01-24 20:11:00 61.28 % [facility] Oxygen saturation in Arterial blood by Pulse oximetry 2022-01-24 20:11:00 100 /min [facility] Procedures Procedure Date / Time Performed Performing Clinicia n Source POCT TEST 2024-01-14 00:00:00 Carol Dill [facility] CT TRAUMA HEAD WO CONTRAST 2023-07-04 15:03:06 Chanda Camp [facility] CT TRAUMA CERVICAL SPINE WO CONTRAST 2023-07-04 15:03:06 Chanda Camp [facility] POCT TEST 2023-07-04 14:49:00 Mary Camp ra [facility] POCT TEST 2022-12-10 00:00:00 José Miller [facility] ASSIGNMENT OF BENEFITS 2022-12-05 16:17:54 Docto r Unassigned, [place] [facility] CONSENT/REFUSAL FOR DIAGNOSIS AND TREATMENT 2022-10-18 15:02:01 Doctor Unassigned, [place] [facility] EKG (SCANNED DOCUMENTS) 2022-01-08 05:01:00 Doctor Unassigned, [place] [facility] Encounters Start Date/Time End Date/Time Encounter Type Admission Type Attending Clinicians Care Facility Care Department Encounter ID Source 2021-04-02 20:26:57 Emergency [facility] [id number] [facility] 2021-04-02 10:31:43 Emergency [facility] [id number] [facility] 2025-01-13 00:00:00 2025-01-13 00:00:00 BENNETT Lockhart: [address], [place] [address] , Ph. Pending sale to [facility] - [email or web address] He* [id number] [facility] 2024-12-14 00:00:00 2024-12-14 00:00:00 Opal Luna PA: [address], [place] [id number] , Ph. Pending sale to [facility] - [email or web address]_Marybel He* [id number] [facility] 2024-12-09 00:00:00 2024-12-09 00:00:00 Opal Luna PA: [address], [place] [id number] , Ph. [facility] [email or web address]_Marybel He* [id number] [facility] 2024-11-06 00:00:00 2024-11-06 00:00:00 Opal Luna PA: [address], [place] [id number] , Ph. Pending sale to [facility] - [email or web address]_Marybel He* [id number] [facility] 2024-11-04 00:00:00 2024-11-04 00:00:00 BENNETT Lockhart: [address], [place] [id number] , Ph. Pending sale to [facility] - [email or web address]_Marybel He* [id number] [facility] 2024-10-20 09:00:00 2024-10-20 09:00:00 Outpatient R VELA-IRA S, CAROL VELA-IRA S, CAROL [facility] [id number] [facility] 2024-01-14 15:45:00 2024-01-14 16:05:21 Outpatient R VELA-IRA S, CAROL VELA-IRA S, CAROL [facility] [id number] [facility] 2024-01-14 15:45:00 2024-01-14 16:05:21 Office Visit Vela-Ira sSusanCarol [facility] [id number] 350.1.13.10 4.2.7.2.686 [id number] 134 [id number] [facility] 2023-12-13 00:00:00 2023-12-16 11:35:17 Telephone Darnell José [facility] 1.2.840.114 350.1.13.10 4.2.7.2.686 [id number] [facility] 2023-07-04 08:30:00 2023-07-04 10:04:00 Emergency X CHANDA CAMP [facility] ERT [id number] [facility] 2023-07-04 08:30:00 2023-07-04 10:04:00 Emergency Chanda Camp [facility] 1.2.840.114 350.1.13.10 4.2.7.2.686 [id number] [facility] 2022-12-10 15:00:00 2022-12-10 15:14:11 Outpatient R MILLER JOSÉ [facility] [id number] [facility] 2022-12-10 15:00:00 2022-12-10 15:14:11 Office Visit José Miller [facility] [id number] 350.1.13.10 4.2.7.2.686 [id number] [facility] 2022-12-06 00:00:00 2022-12-06 00:00:00 Telephone Laurie Garcia [facility] 1.2.840.114 350.1.13.10 4.2.7.2.686 [id number] [facility] 2022-12-05 13:30:00 2022-12-05 13:45:00 Sexual Assault Nurse Visit Pob, Adc Lab Main Laurie Garcia [facility] 1.840.114 350.1.13.10 4.2.7.2.686 [id number] [facility] 2022-12-05 13:30:00 2022-12-05 13:30:00 Outpatient R LAURIE GARCIA [facility] [id number] [facility] 2022-12-05 11:20:00 2022-12-05 12:15:34 Outpatient R LAURIE GARCIA [facility] [id number] [facility] 2022-12-05 11:20:00 2022-12-05 12:15:34 Office Visit Laurie Garcia [facility] 1.840.114 350.1.13.10 4.2.7.2.686 [id number] [facility] 2022-12-05 00:00:00 2022-12-05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 Disposition ED Disposition Disch - Home Condition Stable Comment -- Discharge Medications: Patient's Medications START taking these medications No medications on file CONTINUE taking these medications which have NOT CHANGED LOESTRIN FE (BLISOVI FE 06/22, ,) 1 MG-20 MCG (21)/75 MG (7) TABLET Take 1 tablet by mouth in the morning. RIZATRIPTAN 10 MG TABLET Take 1 tablet by mouth as needed for Migraine. May take a 2nd dose after 2 hours if needed. Max 2 doses/day, 4 doses/week. TOPIRAMATE 25 MG TABLET Take 1 tablet by mouth in the morning. START taking Modified Medications as Prescribed No medications on file STOP taking these medications No medications on file Follow-up: Electronically signed by: Chanda Camp DO 07/04/[address] [facility]
--- NOTE | 2025-01-20 15:04 | RAD REPORT ---
EXAM: XR Knee Right 3 View HISTORY: [facility] MAIN PAIN Bed Name: [id number] COMPARISON: None TECHNIQUE: 3 views of the right knee were obtained. FINDINGS: No knee effusion is seen. There is no evidence of acute fracture or dislocation. No signif icant degenerative changes are seen. No soft tissue swelling or other soft tissue abnormality is present. IMPRESSION: No evidence of acute osseous abnormality.
--- NOTE | 2025-01-20 15:42 | EDPHYS ---
Physician Documentation [facility] Name: Nicole Ritter Age: 19 yrs Sex: Female : 2005 Arrival Date: 01/20/2025 Time: 12:41 Bed 11 Private MD: ED Physician Lauro Mackenzie HPI: 01/20 15:35 This 19 yrs old Black Female presents to ER via Ambulatory with complaints of Knee Pain griffin - right. 15:35 The patient presents with decreased range of motion, pain, tenderness. The complaints griffin affect the right knee. Context: the patient can fully bear weight, the patient is able to ambulate, with mild difficulty, Problem is a result from a previous injury: No. Modifying factors: The symptoms are alleviated by elevating leg, remaining still, the symptoms are aggravated by movement, weight bearing, bending knee. Associated signs and symptoms: The patient has no apparent associated signs or symptoms. Severity of symptoms: At their worst the symptoms were moderate. The patient has not experienced similar symptoms in the past. 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 - Infectious Disease History:: Denies. - Social history:: Smoking status: Patient denies any tobacco usage or history of. - Hospitalizations: : No recent hospitalization is reported. ROS: 15:35 Constitutional: Negative for fever, chills, and weight loss, Eyes: Negative for injury, griffin pain, redness, and discharge, ENT: Negative for injury, pain, and discharge, Neck: Negative for injury, pain, and swelling, Cardiovascular: Negative for chest pain, palpitations, and edema, Respiratory: Negative for shortness of breath, cough, wheezing, and pleuritic chest pain, Abdomen/GI: Negative for abdominal pain, nausea, vomiting, diarrhea, and constipation, Back: Negative for injury and pain, : Negative for injury, bleeding, discharge, and swelling, Skin: Negative for injury, rash, and discoloration, Neuro: Negative for headache, weakness, numbness, tingling, and seizure, Psych: Negative for depression, anxiety, suicide ideation, homicidal ideation, and hallucinations, Allergy/Immunology: Negative for hives, rash, and allergies, Endocrine: Negative for neck swelling, polydipsia, polyuria, polyphagia, and marked weight changes, Hematologic/Lymphatic: Negative for swollen nodes, abnormal bleeding, and unusual bruising, 15:35 MS/extremity: Positive for injury or acute deformity, decreased range of motion, pain, tenderness, of the right knee, Exam: 15:35 Constitutional: This is a well developed, well nourished patient who is awake, alert, griffin and in no acute distress. Head/Face: Normocephalic, atraumatic. Eyes: Pupils equal round and reactive to light, extra-ocular motions intact. Lids and lashes normal. Conjunctiva and sclera are non-icteric and not injected. Cornea within normal limits. Periorbital areas with no swelling, redness, or edema. ENT: Nares patent. No nasal discharge, no septal abnormalities noted. Tympanic membranes are normal and external auditory canals are clear. Oropharynx with no redness, swelling, or masses, exudates, or evidence of obstruction, uvula midline. Mucous membranes moist. Neck: Trachea midline, no thyromegaly or masses palpated, and no cervical lymphadenopathy. Supple, full range of motion without nuchal rigidity, or vertebral point tenderness. No Meningismus. Chest/axilla: Normal chest wall appearance and motion. Nontender with no deformity. No lesions are appreciated. Cardiovascular: Regular rate and rhythm with a normal S1 and S2. No gallops, murmurs, or rubs. Normal PMI, no JVD. No pulse deficits. Respiratory: Lungs have equal breath sounds bilaterally, clear to auscultation and percussion. No rales, rhonchi or wheezes noted. No increased work of breathing, no retractions or nasal flaring. Abdomen/GI: Soft, non-tender, with normal bowel sounds. No distension or tympany. No guarding or rebound. No evidence of tenderness throughout. Back: No spinal tenderness. No costovertebral tenderness. Full range of motion. Female : Normal external genitalia. Skin: Warm, dry with normal turgor. Normal color with no rashes, no lesions, and no evidence of cellulitis. Neuro: Awake and alert, GCS 15, oriented to person, place, time, and situation. Cranial nerves II-XII grossly intact. Motor strength 5/5 in all extremities. Sensory grossly intact. Cerebellar exam normal. Normal gait. Psych: Awake, alert, with orientation to person, place and time. Behavior, mood, and affect are within normal limits. 15:35 Musculoskeletal/extremity: ROM: full active range of motion, full passive range of motion, in the right leg, Circulation is intact in all extremities. Sensation intact. Compartment Syndrome exam of affected extremity: is normal. Weight bearing: able to fully bear weight, DVT Exam: no swelling, negative Homans' sign noted on exam, no appreciated bluish discoloration, no erythema, no increased warmth, pain, tenderness, Vital Signs: 13:08 BP 124 / 76; Pulse 83; Resp 18; Temp 100.2(O); Pulse Ox 97% on R/A; Weight 79.38 kg; cm10 Height 5 ft. 6 in. ; Pain 2/10; 13:08 Body Mass Index 28.25 (79.38 kg, 167.64 cm) cm10 13:08 Pain Scale: Adult cm10 MDM: 13:17 Medical Screening Exam initiated griffin 15:39 Differential diagnosis: dislocation, closed fracture, contusion, tendonitis. Data griffin reviewed: vital signs, nurses notes, radiologic studies, plain films. Consideration of Admission/Observation Escalation of care including admission/observation considered. I considered the following discharge prescriptions or medication management in the emergency department Medications were administered in the Emergency Department. See MAR. Independent interpretation of the following test(s) in the Emergency Department X-Ray: My interpretation is RIGHT KNEE. Test considered but Not performed: Labs: NO LABS , NO CT. Historians other than the Patient: Family Member: FAMILY WELL INFOORMED. Care significantly affected by the following chronic conditions: NONE. 01/20 13:08 Order name: Knee Right 3 View XRAY; Complete Time: 15:34 cm10 01/20 15:35 Order name: Myron wrap-joint; Complete Time: 15:48 griffin 01/20 15:35 Order name: Ice pack; Complete Time: 15:48 griffin Administered Medications: 15:48 Not Given (Patient Refused): [id number] mg PO once dd2 Disposition Summary: 01/20/25 15:41 Discharge Ordered Notes: Location: Home griffin Problem: new griffin Symptoms: have improved griffin Condition: Stable griffin Diagnosis - Pain in right knee griffin - Sprain of other specified parts of right knee griffin Followup: griffin - With: Private Physician - When: 2 - 3 days - Reason: Recheck today's complaints, Continuance of care, Re-evaluation by your physician Followup: griffin - With: Rocky Mckeon MD - When: 2 - 3 days - Reason: Recheck today's complaints, Continuance of care, Re-evaluation by your physician Discharge Instructions: - Discharge Summary Sheet griffin - Joint Pain griffin - Musculoskeletal Pain griffin - Acute Knee Pain, Adult griffin - How to Use Cold Therapy, [id number] griffin - How to Use Cold Therapy griffin - Acute Knee Pain, Adult, [id number] griffin - Joint Pain, Otin-ur-Dwlk [facility] Forms: - Medication Reconciliation Form grififn - Antibiotic Education griffin - Prescription Opioid Use griffin - Patient Portal Instructions [facility] - Leadership Thank You Letter [facility] - Work release form dd2 Prescriptions: - Ibuprofen 600 mg Oral Tablet - take 1 tablet ORAL route every 6 hours As needed take with food; 30 tablet; [facility] Refills: 0, Product Selection Permitted Signatures: Dispatcher [employer] Lauro Diaz MD MD cha Martinez, Clarissa RN RN cm10 ODELL HERNANDEZ RN dd2
--- NOTE | 2025-01-20 15:42 | ER ---
Nurse's Notes [facility] Name: Nicole Ritter Age: 19 yrs Sex: Female : 2005 Arrival Date: 01/20/2025 Time: 12:41 Bed 11 Private MD: Diagnosis: Pain in right knee;Sprain of other specified parts of right knee Presentation: 01/20 13:08 Chief complaint: Patient states: Right knee pain onset Saturday. Pt states that she was cm10 running and started having pain. Coronavirus screen: Client denies travel out of the [place] in the last 14 days. Ebola Screen: Patient denies travel to an Ebola-affected area in the 21 days before illness onset. Initial Sepsis Screen: Does the patient meet any 2 criteria? No. Patient's initial sepsis screen is negative. Does the patient have a suspected source of infection? No. Patient's initial sepsis screen is negative. Risk Assessment: Do you want to hurt yourself or someone else? Patient reports no desire to harm self or others. Onset of symptoms was January 20, 2025. 13:08 Method Of Arrival: Ambulatory cm10 13:08 Acuity: TOMY 4 cm10 Triage Assessment: 13:10 General: Appears in no apparent distress. comfortable, Behavior is calm, cooperative. cm10 Pain: Complains of pain in right knee Pain does not radiate. Pain currently is 2 out of 10 on a pain scale. at worst was 8 out of 10 on a pain scale. Pain began 2-3 days ago. Is intermittent, Aggravated by exercise. Neuro: No deficits noted. Level of Consciousness is awake, alert, obeys commands, Oriented to person, place, time, situation, Appropriate for age. Respiratory: No deficits noted. Airway is patent Respiratory effort is even, unlabored, Respiratory pattern is regular, symmetrical. 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 - Infectious Disease History:: Denies. - Social history:: Smoking status: Patient denies any tobacco usage or history of. - Hospitalizations: : No recent hospitalization is reported. Screenin:54 [facility] ED Fall Risk Assessment (Adult) History of falling in the last 3 months, cm10 including since admission No falls in past 3 months (0 pts) Confusion or Disorientation No (0 pts) Intoxicated or Sedated No (0 pts) Impaired Gait No (0 pts) Mobility Assist Device Used No (0 pt) Altered Elimination No (0 pt) Score/Fall Risk Level 0 - 2 = Low Risk Oriented to surroundings, Maintained a safe environment, Used ambulatory aids as needed (educated on \T\ assisted with). Abuse screen: Denies threats or abuse. Denies injuries from another. Nutritional screening: No deficits noted. Tuberculosis screening: No symptoms or risk factors identified. Assessment: 15:55 Reassessment: Patient appears in no apparent distress at this time. Patient and/or cm10 family updated on plan of care and expected duration. Pain level reassessed. Patient is alert, oriented x 3, equal unlabored respirations, skin warm/dry/pink. Vital Signs: 13:08 BP 124 / 76; Pulse 83; Resp 18; Temp 100.2(O); Pulse Ox 97% on R/A; Weight 79.38 kg; cm10 Height 5 ft. 6 in. ; Pain 2/10; 13:08 Body Mass Index 28.25 (79.38 kg, 167.64 cm) cm10 13:08 Pain Scale: Adult cm10 ED Course: 12:44 Patient arrived in ED. im 13:09 Triage completed. cm10 13:10 Arm band placed on right wrist. Patient placed in waiting room. cm10 13:16 Lauro Mackenzie MD is Attending Physician. griffin 14:07 Knee Right 3 View XRAY In Process Unspecified. EDMS 15:41 Rocky Mckeon MD is Referral Physician. [facility] 15:54 Patient has correct armband on for positive identification. Provided Education on: cm10 Follow-up instructions. Cardiac monitoring not applicable on this patient. 15:55 No provider procedures requiring assistance completed. Patient did not have IV access cm10 during this emergency room visit. Myron wrap to right knee. Wound care: ice pack applied. Administered Medications: 15:48 Not Given (Patient Refused): [id number] mg PO once dd2 Medication: 15:54 VIS not applicable for this client. cm10 Outcome: 15:41 Discharge ordered by . griffin 15:55 Discharged to home ambulatory, cm10 15:55 Condition: good 15:55 Discharge instructions given to patient, Instructed on discharge instructions, follow up and referral plans. medication usage, Demonstrated understanding of instructions, follow-up care, medications, Prescriptions given X 1, 15:56 Patient left the ED. cm10 Signatures: Dispatcher [employer] Lauro Diaz MD MD cha Mendoza, Itzel im Martinez, Clarissa, RN RN cm10 ODELL HERNANDEZ RN dd2
[2025-01-20 23:00] VITALS: BP 124/76; TEMP 100.2; O2SAT 97
== END 2025-01-20 15:56 | disposition home or self-care (01) ==
LOC: ER 12:41
DX: S83.8X1A Sprain of other specified parts of right knee, initial encounter (principal); M25.561 Pain in right knee
CPT/HCPCS: 99283